=== PATIENT | female | born 1955 | race African-American/Black ===

== ENCOUNTER 2017-03-16 04:00 | Inpatient (IN) ==
[2017-03-16 08:12] LABS: Basophils % 0.5 %; Eosinophils # 0.2 K/mcL (0.0-0.6); Eosinophils % 3.7 %; Hemoglobin 12.3 g/dL (11.5-15.4); Immature Granulocytes % 0.2 % (0-4); Immature Platelets 2.2 % (1.1-6.1); Lymphocytes # 1.8 K/mcL (0.6-4.6); Lymphocytes % 29.4 %; Mean Corpuscular HGB Conc 32.4 g/dL (31.6-35.5); Mean Corpuscular Hemoglobin 27.1 pg (28.0-33.3); Mean Corpuscular Volume 83.7 fL (83.0-100.0); Mean Platelet Volume 9.3 fL (9.4-12.4); Monocytes # 0.5 K/mcL (0.0-1.3); Monocytes % 7.7 %; Neutrophils # 3.5 K/mcL (1.6-8.9); Platelet Count 304 K/mcL (140-400); Red Blood Count 4.54 M/mcL (3.82-4.97); Red Cell Distribution Width 14.4 % (11.5-14.5); Segmented Neutrophils % 58.5 %
[2017-03-16 08:25] LABS: Potassium 3.9 mEq/L (3.5-4.5)
[2017-03-16 08:26] LABS: Calcium 9.6 mg/dL (8.6-10.8); Magnesium 2.2 mg/dL (1.6-2.6)
[2017-03-16] MEDS ORDERED: Nitroglycerin 0.4 MG TAB.SUBL SL PRN (09:20)
[2017-03-16] MEDS ORDERED: hydrOXYzine pamoate 25 MG CAPSULE PO PRN (09:20)
[2017-03-16] MEDS ORDERED: Fluticasone Propionate Nasal 50 MCG/SPRAY BOTTLE NS PRN (09:20)
--- NOTE | 2017-03-16 09:27 | Internal Med History&Physical ---
Date of Encounter: 03/16/17 Time of Encounter: 09:24 Assessment and Plan (1) Chest pain Current visit: Yes Status: Acute Electrocardiogram shows right bundle branch block. Troponin was only performed 2 days ago. Will check serial troponin. Stress electrocardiogram is normal. We will start the patient on aspirin. Qualifiers: Qualified Code(s): R07.9 - Chest pain, unspecified (2) Hypertension Current visit: Yes Status: Acute Continue all medications Qualifiers: Qualified Code(s): I10 - Essential (primary) hypertension (3) Suicidal behavior Current visit: Yes Status: Acute Patient is actively suicidal. We will get sitter at bedside. psychiatry consultation Qualifiers: Qualified Code(s): R46.89 - Other symptoms and signs involving appearance and behavior Internal Medicine - H&P: HPI Chief complaint: chest pain History of present illness: Ms. Gonzalez is a 61 year old female with multiple medical problems including depression suicidal ideations has been hospitalized in the [place] floor because of active suicidal thoughts was transferred to our facility because of chest pain. Patient denies any pain during my interview. Reportedly patient had a recent stress test that was unremarkable. Patient mentions that she had active suicidal thoughts. Patient denies any prior coronary heart disease Past Med Surg Social Fam HX - Past Medical History Medical history: asthma, GERD, hypertension Psychiatric history: anxiety, bipolar, depression, previous psychiatric hospitalization - Past Surgical History Surgical History: no surgical history - Social History Smoking Status: Never smoker Smokeless Tobacco Status: No Alcohol use: none Drug use: unknown - Family History Mother Hx Family Cardiac Disorders: Yes Father Hx Family Cardiac Disorders: Yes Internal Medicine - H&P: Meds Albuterol Sulfate [Albuterol Inhaler] 0 puff IH Q4HR 03/16/17 [History] Diphenhydramine HCl [Nighttime Sleep Aid] 50 mg PO BID PRN 03/16/17 [History] Docusate Sodium [Colace] 100 mg PO BID PRN 03/16/17 [History] Fluticasone Propionate Nasal [Flonase] 50 mcg NS BID PRN 03/16/17 [History] Haloperidol [Haldol] 5 mg PO BID PRN 03/16/17 [History] LORazepam [Ativan] 1 mg PO BID PRN 03/16/17 [History] Levothyroxine [Synthroid] 25 mcg PO DAILY 03/16/17 [History] Montelukast [Singulair] 10 mg PO HS 03/16/17 [History] Mupirocin 1 gm TP BID PRN 03/16/17 [History] Nitroglycerin [Nitrostat] 0.4 mg SL PRN PRN 03/16/17 [History] PARoxetine HCl [Paroxetine HCl] 40 mg PO DAILY 03/16/17 [History] Pantoprazole Sodium 40 mg PO DAILY 03/16/17 [History] amLODIPine [Norvasc] 5 mg PO DAILY 03/16/17 [History] hydrOXYzine HCl [Hydroxyzine HCl] 50 mg PO BID PRN 03/16/17 [History] lamoTRIgine [Lamictal] 100 mg PO BID 03/16/17 [History] 3 Allergy/AdvReac Type Severity Reaction Status Date / Time No Known Allergies Allergy Verified 03/16/17 05:23 All Systems PM: A 10-system review of systems was performed and is negative for pertinent findings except as documented above in the HPI. Review of systems: 10 point review systems is negative except for HPI - Constitutional Vitals: Temp Pulse Resp BP Pulse Ox 98.1 F 89 14 147/75 100 03/16/17 05:37 03/16/17 05:37 03/16/17 05:37 03/16/17 05:37 03/16/17 05:37 Exam: Gen.: patient is sleepy not in distress cardiac: normal S1 S2 no additional sounds or murmurs chest: no active wheezing or bronchial breathing abdomen soft nontender nondistended normal bowel sounds lower extremity no swelling. Neuro: no new focal deficits Internal Med - H&P Results - Labs CBC & Chem 7: 03/16/17 08:02 03/16/17 08:02 Labs: Short CBC 03/16/17 Range/Units 08:02 WBC 6.0 (4.3-11.1) K/mcL Hgb 12.3 (11.5-15.4) g/dL Hct 38.0 (35.3-44.9) % Plt Count 304 (140-400) K/mcL Neutrophils # 3.5 (1.6-8.9) K/mcL BMP 03/16/17 08:02 Sodium 143 Potassium 3.9 Chloride 105 Carbon Dioxide 29 BUN 15 Creatinine 1.14 H Glucose 129 H Calcium 9.6 Cardiac Enzymes 03/16/17 Range/Units 08:02 Troponin I 0.01 (0-0.03) ng/mL
[2017-03-16] MEDS: *HR* LORazepam 1 MG TABLET PO PRN ×2 (10:39→21:38)
[2017-03-16] MEDS: 0.9 % Sodium Chloride 1,000 ML IVC SCH (10:40)
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
--- NOTE | 2017-03-16 15:13 | Cardiology Consult Note ---
Date of Encounter: 03/16/17 Time of Encounter: 15:03 Assessment and Plan (1) Chest pain Current Visit: Yes Status: Acute Atypical chest pain. Likely related to anxiety s/p suicide attempt. Exercise stress EKG completed per [facility] report was negative for ischemic changes. Troponin negative x3. EKG shows NSR with RBBB. Cardiac risk factor includes HTN. No further cardiac testing indicated at this. Recommend risk factor modification. Asa and beta-rene. Metoprolol started per [facility] note. I will restart here. Check lipids. Qualifiers: Chest pain type: unspecified Qualified Code(s): R07.9 - Chest pain, unspecified (2) Hypertension Current Visit: Yes Status: Acute Uncontrolled HTN. Adding metoprolol. Qualifiers: Qualified Code(s): I10 - Essential (primary) hypertension Discussion w patient/family: The assessment and plan as outlined above was discussed with the patient and/or family members who expressed understanding and agreement. All questions were answered. Thank you for involving us in the care of your patient. Please call with any questions. History of Present Illness Consult date: 03/16/17 Requesting physician: Preston Pelayo Consult reason: Chest pain Chief complaint: Suicidal ideation, anxiety, chest pain History of present illness: Ms. Gonzalez is a 61 year old female with a history of hypertension, schizophrenia/bipolar, and GERD who was sent from the [place] psychiatric unit with chest pain. She c/o chest pain occuring across her chest but mostly in the right. She says the pain started when she was "overloaded with anxiety." She denies SOB or palpitations. She was being treated for suicide attempt and suicidal ideation at the [place]. She took 40 pills at once. She thinks the pills may have been topamax. She reports she is feeling much better now and all of the tension in her chest was relieved when the nurse gave her a new pill today. She did undergo exercise stress test yesterday. ECG was negative for ischemia. EKG shows SR with RBBB. Past Med Surg Social Fam HX - Past Medical History Medical history: asthma, GERD, hypertension Psychiatric history: bipolar, schizophrenia, previous psychiatric hospitalization - Past Surgical History Surgical History: no surgical history - Social History Smoking Status: Never smoker Smokeless Tobacco Status: No Alcohol use: none Drug use: unknown - Family History Mother Hx Family Cardiac Disorders: Yes Father Hx Family Cardiac Disorders: Yes Medications and Allergies Albuterol Sulfate [Albuterol Inhaler] 0 puff IH Q4HR 03/16/17 [History] Cetirizine HCl [All Day Allergy] 10 mg PO DAILY 03/16/17 [History] Diphenhydramine HCl [Nighttime Sleep Aid] 50 mg PO BID PRN 03/16/17 [History] Docusate Sodium [Colace] 100 mg PO BID PRN 03/16/17 [History] Estrogen,Con/M-Progest Acet [Prempro 0.3 mg-1.5 mg Tablet] 1 tab PO DAILY [History] Fluticasone Propionate Nasal [Flonase] 50 mcg NS BID PRN 03/16/17 [History] GuaiFENesin/Dextromethorphan [Robitussin/DM] 10 ml PO Q6HR PRN 03/16/17 [History ] Haloperidol [Haldol] 5 mg PO BID PRN 03/16/17 [History] LORazepam [Ativan] 1 mg PO BID PRN 03/16/17 [History] Levothyroxine [Synthroid] 25 mcg PO DAILY 03/16/17 [History] Montelukast [Singulair] 10 mg PO HS 03/16/17 [History] Mupirocin 1 gm TP BID PRN 03/16/17 [History] Nitroglycerin [Nitrostat] 0.4 mg SL PRN PRN 03/16/17 [History] OLANZapine [Zyprexa] 10 mg PO HS 03/16/17 [History] PARoxetine HCl [Paroxetine HCl] 40 mg PO DAILY 03/16/17 [History] Pantoprazole Sodium 40 mg PO DAILY 03/16/17 [History] Topiramate [Topamax] 50 mg PO DAILY 03/16/17 [History] amLODIPine [Norvasc] 5 mg PO DAILY 03/16/17 [History] hydrOXYzine HCl [Hydroxyzine HCl] 50 mg PO BID PRN 03/16/17 [History] lamoTRIgine [Lamictal] 100 mg PO QAM 03/16/17 [History] lamoTRIgine [Lamotrigine] 200 mg PO HS 03/16/17 [History] 3 Allergy/AdvReac Type Severity Reaction Status Date / Time No Known Allergies Allergy Verified 03/16/17 05:23 All Systems Review: A 10-system review of systems was performed and is negative for pertinent findings except as documented above in the HPI. Physical Examination Vital Signs, Last 4 Hours Temp Pulse Resp BP Pulse Ox 03/16/17 15:00 98.1 F 99 16 143/84 96 General: Conversant, No Apparent Distress HEENT: Atraumatic, Normocephaly, Mucus Membranes Moist Neck: No JVD, Normal carotid pulses Cardiac: Reg Rate and Rhythm, Normal S1 and S2, No Murmur Lungs: Normal Breath Sounds, No Wheeze, Rales, Rhonchi Neuro: Alert and responsive, No focal deficits noted Abdomen: Soft, Non-Tender Skin: No rashes noted on visualized skin Musculoskeletal: No Chest Wall Tenderness Extremities: No Clubbing, No Cyanosis, No Edema, Normal Pulses Results 03/16/17 08:02 03/16/17 08:02 Lab Results 03/16/17 03/16/17 03/16/17 08:02 08:02 08:02 WBC 6.0 Hgb 12.3 Hct 38.0 Plt Count 304 Sodium 143 Potassium 3.9 Chloride 105 Carbon Dioxide 29 BUN 15 Creatinine 1.14 H Glucose 129 H Calcium 9.6 Magnesium 2.2 Troponin I 0.01 03/16/17 13:40 WBC Hgb Hct Plt Count Sodium Potassium Chloride Carbon Dioxide BUN Creatinine Glucose Calcium Magnesium Troponin I 0.01 - EKG Interpretation EKG results cardiology: personally reviewed (SR with RBDONALDO) Consult Discharge Plan - Plan [facility]errals: [facility] [Primary Care Provider] -
[2017-03-16] MEDS: lamoTRIgine 100 MG TABLET PO SCH (20:25)
[2017-03-17] MEDS: 0.9 % Sodium Chloride 1,000 ML IVC SCH (04:07)
[2017-03-17 06:17] LABS: Chol/HDL Ratio 3.2 (0-4.9)
[2017-03-17] MEDS ORDERED: Levothyroxine 25 MCG TABLET PO SCH (06:30)
[2017-03-17] MEDS: lamoTRIgine 100 MG TABLET PO SCH (08:17)
[2017-03-17] MEDS ORDERED: Aspirin 81 MG TAB.CHEW PO SCH (09:00)
[2017-03-17] MEDS ORDERED: amLODIPine 5 MG TABLET PO SCH (09:00)
--- NOTE | 2017-03-17 10:55 | Discharge Summary ---
Date of Encounter: 03/17/17 Time of Encounter: 08:50 - Discharge Diagnosis (1) Chest pain Priority: Primary Status: Resolved Qualifiers: Chest pain type: unspecified Qualified Code(s): R07.9 - Chest pain, unspecified (2) Hypertension Priority: Secondary Status: Acute Qualifiers: Hypertension type: essential hypertension Qualified Code(s): I10 - Essential (primary) hypertension (3) Suicidal behavior Priority: Secondary Status: Acute Qualifiers: Qualified Code(s): T14.91XA - Suicide attempt, initial encounter (4) Bipolar affective disorder Priority: Secondary Status: Acute Qualifiers: Active/Remission status: currently active Current episode severity: severe Psychotic features: with psychotic features Qualified Code(s): F31.2 - Bipolar disorder, current episode manic severe with psychotic features - Discharge Medications Prescriptions: Quetiapine Fumarate [Seroquel] 50 mg PO BID #30 tablet Home Medications: Albuterol Sulfate [Albuterol Inhaler] 0 puff IH Q4HR 03/16/17 [History] Cetirizine HCl [All Day Allergy] 10 mg PO DAILY 03/16/17 [History] Diphenhydramine HCl [Nighttime Sleep Aid] 50 mg PO BID PRN 03/16/17 [History] Docusate Sodium [Colace] 100 mg PO BID PRN 03/16/17 [History] Estrogen,Con/M-Progest Acet [Prempro 0.3 mg-1.5 mg Tablet] 1 tab PO DAILY [History] Fluticasone Propionate Nasal [Flonase] 50 mcg NS BID PRN 03/16/17 [History] GuaiFENesin/Dextromethorphan [Robitussin/Dm] 10 ml PO Q6HR PRN 03/16/17 [History ] Haloperidol [Haldol] 5 mg PO BID PRN 03/16/17 [History] LORazepam [Ativan] 1 mg PO BID PRN 03/16/17 [History] Levothyroxine [Synthroid] 25 mcg PO DAILY 03/16/17 [History] Montelukast [Singulair] 10 mg PO HS 03/16/17 [History] Mupirocin 1 gm TP BID PRN 03/16/17 [History] Nitroglycerin [Nitrostat] 0.4 mg SL PRN PRN 03/16/17 [History] OLANZapine [Zyprexa] 10 mg PO HS 03/16/17 [History] PARoxetine HCl [Paroxetine HCl] 40 mg PO DAILY 03/16/17 [History] Pantoprazole Sodium 40 mg PO DAILY 03/16/17 [History] Topiramate [Topamax] 50 mg PO DAILY 03/16/17 [History] amLODIPine [Norvasc] 5 mg PO DAILY 03/16/17 [History] hydrOXYzine HCl [Hydroxyzine HCl] 50 mg PO BID PRN 03/16/17 [History] lamoTRIgine [Lamictal] 100 mg PO QAM 03/16/17 [History] lamoTRIgine [Lamotrigine] 200 mg PO HS 03/16/17 [History] Quetiapine Fumarate [Seroquel] 50 mg PO BID #30 tablet 03/17/17 [Rx] Allergies/Adverse Reactions: 3 Allergy/AdvReac Type Severity Reaction Status Date / Time No Known Allergies Allergy Verified 03/16/17 05:23 Procedures/tests Complete & Pending: Procedures Performed prior 72 hours Category Date Time Status ECG 12 lead ECG [ECG] Stat Y 03/16/17 07:35 Ordered Date of admission: 03/16/17 04:57 [facility] care physician: [facility] Consults: 03/16/17 09:24 Consult to Psychiatry [CONS] Routine Consulting Provider: Psychiatry Lauren Reason for Consult: suicidal Call Completed: No 03/16/17 13:08 Consult to Cardiology [CONS] Routine Comment: Consulting Provider: Cardiology [place] Reason for Consult: chest pain Call Completed: No Discharging clinician: Kole Giron Anticipated date of discharge: 03/17/17 - Patient Status Disposition: Transfer [facility] Condition: Good Functional capacity at discharge: independent ambulation Overall status at discharge: patient is progressing back to baseline - Discharge Instructions Instructions: Chest Pain (DC), Mood Disorders (DC) Follow Up With: [facility] [Primary Care Provider] - - Diet and Activity Activity: increase activity as tolerated Diet: low fat, low cholesterol, low salt diet Hospital course: Ms. Gonzalez is a 61 year old female is sent with a history of bipolar/ schizoaffective disorder who is hospitalized at [facility] for suicidal ideation and behavior was transferred here after she complained of chest pain. By the time she came here, she denied any symptoms of chest pain. She did not have any nausea or vomiting. No shortness of breath. She had recently undergone a stress echocardiogram which was negative. She was observed and her troponins were trended. Cardiology was consulted for [facility] request. They do not recommend any further cardiac workup at this time. Currently patient is chest pain-free. She continues to have suicidal thoughts and will need to continue inpatient care with psychiatry at the [facility]. She will be discharged from here and transferred to [facility]. - Time Spent with Patient Total time spent providing and/or coordinating discharge services: Less than 30 minutes (20 min) - Constitutional Vitals: Temp Pulse Resp BP Pulse Ox 97.9 F 74 17 151/69 97 03/17/17 07:47 03/17/17 07:47 03/17/17 07:47 03/17/17 07:47 03/17/17 07:47 General appearance: Present: cooperative, A&O X 3, answers questions appropriately - Respiratory Respiratory exam: Present: CTAB. Absent: accessory muscle use, rales, rhonchi, wheezes - Cardiovascular Cardiovascular exam: Present: RRR, +S1, +S2. Absent: diastolic murmur, gallop, rubs, systolic murmur - Neurological Exam Neurological exam: Present: alert, oriented X3, no focal deficits. Absent: facial droop, speech deficit
[2017-03-17 11:50] VITALS: BP 127/74
--- NOTE | 2017-03-18 18:58 | Electrocardiograph Report ---
[place] [id number] Test Date: 2017-03-17 Pat Name: Carol Gonzalez Department: 113 Room: 3B12 Gender: F Sagger Filler: : 1955 Requested By: Kole Giron Order Number: [id number] Reading MD: Wilmer Berger DO Measurements Intervals [place] Rate: 72 P: 56 MD: 132 QRS: 8 QRSD: 137 T: 4 QT: 428 QTc: 452 Interpretive Statements SINUS RHYTHM RIGHT BUNDLE BRANCH BLOCK Electronically Signed On 03-18-2017 18:56:16 EDT by Wilmer Berger DO
[2017-03-19 11:34] LABS: CK-BB (CK isoenzymes) 0 % (0-0); CK-MB (CK isoenzymes) 0 % (0-4); CK-MM (CK-isoenzymes) 100 % (96-100)
[2017-03-19 17:07] LABS: CK-BB (CK isoenzymes) 0 % (0-0); CK-MB (CK isoenzymes) 0 % (0-4); CK-MM (CK-isoenzymes) 100 % (96-100)
[2017-03-19 17:07] LABS: CK-BB (CK isoenzymes) 0 % (0-0); CK-MB (CK isoenzymes) 0 % (0-4); CK-MM (CK-isoenzymes) 100 % (96-100)
[2017-03-21 07:56] LABS: CK Total (Ck Isoenzymes) 144 U/L (20-180)
[2017-03-21 07:57] LABS: CK Total (Ck Isoenzymes) 118 U/L (20-180)
[2017-03-21 07:58] LABS: CK Total (Ck Isoenzymes) 86 U/L (20-180)
== END 2017-03-17 12:22 | DRG 880 ==
LOC: 3BNU 04:57 → SUATTDRO 04:57 → 3BNU 17:56
PROVIDERS: ADMIT Family Medicine; ATTEND Internal Medicine